=== PATIENT | male | born 1990 | race Caucasian/White ===

== ENCOUNTER 2020-07-14 19:09 | Emergency (ER) | payer OTHER ==
[~2020-07-14] VITALS: Ht 167.6 cm; Wt 68.0 kg
== END 2020-07-14 20:38 | disposition home or self-care (01) ==
LOC: ER 19:09
DX: R10.11 Right upper quadrant pain (principal)

== ENCOUNTER → 2020-07-15 | Outpatient (CLI) | payer OTHER | END | disposition home or self-care (01) | LOC: SONOGRAMA 06:45 | PROVIDERS: ATTEND Emergency Medicine | DX: R10.9 Unspecified abdominal pain (principal) ==

== ENCOUNTER 2020-09-24 21:38 | Emergency (ER) | payer OTHER ==
[~2020-09-24] VITALS: Ht 167.6 cm; Wt 68.0 kg
[2020-09-24] MEDS ORDERED: TOPROL XL25 M1 PO (21:47)
[2020-09-25] MEDS ORDERED: PEPCID40 MG PO (01:58)
[2020-09-25] MEDS ORDERED: LEVSIN/SL0.125 MG SL (01:58)
[2020-09-25] MEDS ORDERED: ZOFRAN8 MG PO (01:58)
== END 2020-09-25 02:13 ==
LOC: ER 21:38
DX: R19.7 Diarrhea, unspecified (principal)